=== PATIENT | male | born 1995 | race Caucasian/White ===

== ENCOUNTER 2024-01-10 11:07 | Outpatient (CLI) | payer OTHER, SELFPAY | END 2024-01-10 11:08 | disposition home or self-care (01) | PROVIDERS: PCP Family Medicine; Visit Provider Registered Nurse | DX: R10.9 Unspecified abdominal pain (principal); R19.7 Diarrhea, unspecified | CPT/HCPCS: 80053; 83690; 86140 ==

== ENCOUNTER 2024-02-03 07:23 | Outpatient (CLI) | payer OTHER, SELFPAY ==
--- NOTE | 2024-02-03 08:44 | W.ANESCHARGE ---
Anesthesia Charges Start Date/Time Anesthesia Start Date: 02/03/24 Anesthesia Start Time: 08:17 Stop Date/Time Anesthesia Stop Date: 02/03/24 Anesthesia Stop Time: 08:41
--- NOTE | 2024-02-03 09:01 | W.ANESCHARGE ---
Anesthesia Charges Start Date/Time Anesthesia Start Date: 02/03/24 Anesthesia Start Time: 08:17 Stop Date/Time Anesthesia Stop Date: 02/03/24 Anesthesia Stop Time: 08:41
== END 2024-02-03 07:24 | disposition home or self-care (01) ==
LOC: OP CLINIC 07:25
PROVIDERS: PCP Family Medicine; Visit Provider Internal Medicine
DX: K92.1 Melena (principal); K64.8 Other hemorrhoids
CPT/HCPCS: 00811; 45380; 88305; J2704